=== PATIENT | female | born 1955 | race Caucasian/White ===

== ENCOUNTER 2016-08-23 10:46 | Observation (INO) | payer OTHER, MEDICARE ==
[2015-08-28 22:22] VITALS: BMI 41.1
[~2016-08-23 10:46] MED LIST: DEXAMETHASONE 4 MG/ML VIAL IV ONE; FENTANYL 250 MCG/5 ML VIAL IV ONE; GLYCOPYRROLATE 1 MG VIAL IM ONE; LIDOCAINE 100 MG PFS IV ONE; MIDAZOLAM 2 MG/2 ML VIAL IV ONE; NEOSTIGMINE 1 MG/1 ML (1:1000) INJ 10 ML MDV IM ONE; ONDANSETRON HCL 4 MG/2 ML VIAL IV ONE; PROPOFOL 200 MG/20 ML VIAL IV ONE; ROCURONIUM 50 MG/5 ML VIAL IV ONE; SUCCINYLCHOLINE 20 MG/1 ML INJ 10 ML MDV IV ONE
[2016-08-23] MEDS ORDERED: Albuterol/Ipratropium Neb 3 ML NEB NEB ONE (11:03)
[2016-08-23] MEDS ORDERED: CEFAZOLIN 1 GM VIAL ONE (11:04)
[2016-08-23 12:13] LABS: MPV 10.3 fL (7.4-10.4)
[2016-08-23 12:27] LABS: BLOOD UREA NITROGEN 16 MG/DL (7-17); CALCIUM 9.6 MG/DL (8.4-10.2); CALCULATED OSMOLALITY 278 MOs/Kg (270-290); CHLORIDE 107 mEq/L (98-107); GLUCOSE 102 MG/DL (70-99); SODIUM LEVEL 144 mEq/L (137-146); TOTAL PROTEIN 7.6 G/DL (6.3-8.2)
[2016-08-23] MEDS ORDERED: BUPIVACAINE 0.25%-EPINEPHRINE 1:200,000 30 ML ONE (14:01)
--- NOTE | 2016-08-23 14:06 | HIM.ANES ---
Anesthesia Evaluation & Plan Diagnoses: INCISIONAL HERNIA WITH OBSTRUCTION, WITHOUT GANGRENE (08/23/16) Consented Procedure: laparoscopiic ventral incisional hernia repair - Focused Review of Systems Cardiac History: Yes: Hx Hypertension, Hx Cardiac Disorders, Hx Abnormal Cholesterol/Hyperlipidemia HEENT: Yes: Hx Dysphagia, Hx Vision Problem (WEARS GLASSES), Other HEENT Problems No: Loose/Decaying Teeth Hx Other HEENT Surgery: T&A Respiratory: Yes: Hx Asthma, Hx Snoring, Hx Recent Cold/Flu (RECENT BRONCHITIS TAKING FLAGYL) Gastrointestinal: Yes: Hx Gastroesophageal Reflux Disease, Hx Gastrointestinal Disorders, Hx Diverticulitis, Hx Diverticulosis, Hx Colonoscopy, Hx Endoscopy Neurological/Musculoskeletal: Yes: Hx Migraine, Hx Back Pain, Hx Numbness, Tingling, Weakness in Arms & Legs, Hx Neurological Disorders No: HX Cerebrovascular Accident Other Neurological Problems: NEUROPATHY Psychological: Yes Hx Depression, Yes Hx Mental/Emotional Disorders Endocrine: Yes: Hx Obesity Blood/Autoimmune: Yes: Hx Anemia No: Hx AIDS, Hx Hepatitis (type) Smoking Status: Former smoker Surgical History: Yes: T&A, Cholecystectomy, Knee (RT TKA 08/2015 AND RT KNEE I& D 08/2015) Other Surgical History: T&A - Focused Physical Exam NPO since: 08/22/16 2300 Mallampati: Class II Thyromental Distance: Greater than 3 Neck: Full Range of Motion Dental: Normal - no significant findings Cardiovascular/Chest: Normal (RRR no mumurs or rubs.) Respiratory: Lungs clear. negative: Rhonchi, Wheezing Any problems with anesthesia, including nausea and vomiting?: Yes (N/V) Any relatives with a history of Malignant Hyperthermia?: No Does patient have a history of Malignant Hyperthermia?: No Beta Shanae given (if appropriate): Yes Does the patient have a history of Motion Sickness-: No Other: Problem List Problem Status Onset Status post total knee replacement using cement Acute Primary osteoarthritis of right knee Chronic CBC/BMP/Other 08/23/16 12:10 08/23/16 12:10 Allergies Allergy/AdvReac Type Severity Reaction Status Date / Time Sulfa (Sulfonamide Allergy Hives* Verified 08/23/16 11:15 Antibiotics) [Sulfa(Sulfonamide Antibiotics)] Home Medications Medication Instructions Recorded Last Taken Type Bisoprolol Fumarate/Hctz 1 each PO DAILY 12/14/12 08/23/16 07:30 History [Bisoprolol-Hctz Tablet (10mg/6.25mg)] Citalopram (anti-depressant) 20 mg PO DAILY 12/14/12 08/22/16 History [Celexa] Etodolac 400 mg PO TID 12/14/12 08/22/16 22:30 History Loratadine [Claritin] 10 mg PO DAILY 12/14/12 08/22/16 History Multivitamin [Multiple Vitamins] 1 each PO DAILY 12/14/12 08/22/16 History Omeprazole [Prilosec] 40 mg PO DAILY 12/14/12 08/23/16 07:30 History Pravastatin Sodium 40 mg PO DAILY 12/14/12 08/22/16 History Albuterol Sulfate [Ventolin Hfa] 1 - 2 puff INH Q4H PRN 08/08/15 08/22/15 History Gabapentin 600 mg PO TID 08/08/15 08/23/16 07:30 History Gemfibrozil [Lopid] 600 mg PO BID 08/08/15 08/22/16 22:30 History Ranitidine [Zantac] 150 mg PO HS 08/08/15 08/22/16 22:30 History Aspirin (OrangeEnteric Coated) 325 mg PO BIDWM #60 tablet 08/20/15 08/28/15 21: 00 Rx [Ecotrin] Cyclobenzaprine HCl [Flexeril] 10 mg PO Q8H PRN 08/29/15 08/22/16 22:30 History Albuterol Sulfate Nebs [Proventil, 3 ml INH Q4-6H PRN 08/20/16 Unknown History Ventolin] Metronidazole [Flagyl] 500 mg PO BID 08/20/16 08/18/16 History Hydrocodone 5 mg & APAP 325 mg 1 tab PO QID PRN 08/23/16 08/22/16 22:30 History [Lortab 5-325 Tab] Height and Weight Patient's height 5 ft 2 in Patient's weight 96.615 kg BMI 41.1 Vital Signs Temperature 98.3 F 08/23/16 11:08 Pulse Rate 99 08/23/16 11:08 Respiratory Rate 18 08/23/16 11:08 Blood Pressure 145/70 08/23/16 11:08 Pulse Oxygen Saturation 93 08/23/16 11:08 METS - Level of Activity: Climbing stairs(1 flight),walking level ground, running short distance - Anesthetic Plan Anesthesia Type: General ASA Class: 2 -: I have examined this patient and reviewed the medical record. The patient has been assessed prior to anesthesia. Risks and benefits of anesthesia and anesthetic technique options have been discussed and all questions answered. The patient accepts the risk and desires me to proceed with the planned anesthetic.
[2016-08-23] MEDS ORDERED: SCOPOLAMINE TRANSDERMAL PATCH TOP ONE ×2 (14:09)
[2016-08-23] MEDS ORDERED: ONDANSETRON HCL 4 MG/2 ML VIAL IV PRN ×2 (14:09→15:26)
[2016-08-23] MEDS ORDERED: LABETALOL 20 MG/4 ML SYRINGE IV PRN (14:09)
[2016-08-23] MEDS ORDERED: MEPERIDINE 25 MG/ML TUBEX IV PRN (14:09)
[2016-08-23] MEDS ORDERED: FENTANYL 100 MCG/2 ML VIAL IV PRN (14:09)
[2016-08-23] MEDS ORDERED: HYDROmorphone 1 MG INJECTION IV PRN ×3 (14:09→15:26)
[2016-08-23] MEDS ORDERED: ONDANSETRON HCL 4 MG ODT TAB PO PRN ×2 (14:09→15:26)
[2016-08-23] MEDS ORDERED: hydrALAZINE 20 MG/ML VIAL IV PRN (14:09)
[2016-08-23] MEDS ORDERED: DEXTROSE 25 GM/50 ML PFS IV PRN (15:26)
[2016-08-23] MEDS ORDERED: OXYCODONE HCL 5 MG TABLET PO PRN (15:26)
[2016-08-23] MEDS ORDERED: GLUCAGON 1 MG VIAL SQ PRN (15:26)
[2016-08-23] MEDS ORDERED: PROMETHAZINE 25 MG/ML VIAL IV PRN (15:26)
[2016-08-23] MEDS ORDERED: PROMETHAZINE 25 MG TAB PO PRN (15:26)
[2016-08-23] MEDS ORDERED: GLUCOSE (ORAL GEL) 15 GM TUBE PO PRN (15:26)
[2016-08-23] MEDS ORDERED: CYCLOBENZAPRINE 10 MG TAB PO PRN (15:29)
[2016-08-23] MEDS ORDERED: ALBUTEROL 0.083% 3 ML NEB NEB PRN ×2 (15:29→21:29)
--- NOTE | 2016-08-23 15:37 | HIMOPRPT ---
DATE OF PROCEDURE: 08/23/16 PREOPERATIVE DIAGNOSES: Symptomatic incarcerated ventral incisional hernia. POSTOPERATIVE DIAGNOSES: Same. PROCEDURES: Laparoscopic repair of incarcerated ventral incisional hernia. SURGEON: Jens Jonas MD ANESTHESIA: General. COMPLICATIONS: None. ESTIMATED BLOOD LOSS: Minimal. ANTIBIOTICS: Preoperative antibiotics given. INDICATIONS: The patient is a very pleasant female who had been found to have a symptomatic incarcerated ventral incisional hernia. I evaluated her and felt she would benefit from laparoscopic ventral incisional hernia repair. I explained the risks and benefits of this to her including the risk infection, bleeding and anesthesia as well as the unforeseen complications. She understood the risk of recurrence and mesh complications. She agreed was brought for the above-mentioned procedure. OPERATIVE NOTE: The patient was brought to the operating room and placed on the operating table in the supine position. After adequate amount of general anesthesia she was prepped and draped in sterile manner. When given the okay by anesthesia after appropriate time-out an Optiview trocars placed in the left upper quadrant without any difficulties. The abdomen was insufflated 15 mm mercury pressure with CO2 gas. Three other trocars were placed under direct vision usual manner without any problems. At that point we carefully reduced the omentum from the hernia sac. Hemostasis was assured. A 15 cm surgimesh prosthesis was then placed into the abdomen after affixing stay sutures in each quadrant. The stay sutures were brought out with a suture Passer. We had excellent overlap of over 5 cm circumferentially. We used a secure strap and circular Tacker to tack this into position. With the mesh in good position we place Seprafilm in the usual manner. Local anesthetic was applied. The trocars were removed after closing the 12 mm trocar site with a 1. Vicryl suture. All wounds were irrigated and the trocar sites were brought together with 4 0 Monocryl. Dermabond tissue adhesive was applied and allowed to dry. The patient was awoke and taken recover room in excellent condition with correct sponge counts needle counts.
[2016-08-23] MEDS ORDERED: FENTANYL 100 MCG/2 ML VIAL ONE (15:41)
[2016-08-23] MEDS: FENTANYL 100 MCG/2 ML VIAL IV PRN ×2 (15:45→16:00)
[2016-08-23] MEDS ORDERED: BUPIVACAINE LIPOSOME/PF 1.3% 20 ML VIAL INF ONE (16:00)
[2016-08-23] MEDS ORDERED: Acetaminophen, Intravenous 1,000 MG/100 ML IVBOT IV ONE (16:00)
--- NOTE | 2016-08-23 17:24 | SC.ANESPOS ---
Post-Anesthesia Note LOC: Fully Awake Post-Anesthesia Assessment: Awake, Returned to Baseline, Hemodynamically Stable , Pain Control Adequate Phase I & II Recovery Complete: Yes Apparent Anesthesia Complication: No : N PACU Discharge Time: 16:35 - Vital Signs Blood Pressure: 125/58 Pulse: 91 Resp Rate: 18 O2 Sat: 92 Temp: 98.4 F - Comments Anesthesia Discharge Time Report Time 16:35
[2016-08-23] MEDS: REGULAR INSULIN 100 UNITS/ML - 3 ML VIAL SQ SCH ×2 (18:06→21:16)
[2016-08-23] MEDS: SODIUM CHLORIDE 0.9% 3 ML FLUSH FLUSH SCH ×2 (18:06→18:07)
[2016-08-23] MEDS: Aspirin (Orange Enteric Coated) 325 mg tab PO SCH (18:27)
[2016-08-23] MEDS: OXYCODONE HCL 5 MG TABLET PO PRN ×2 (18:27→22:53)
[2016-08-23] MEDS: GEMFIBROZIL 600 MG TAB PO SCH (18:27)
[2016-08-23] MEDS: METRONIDAZOLE 500 MG TAB PO SCH (20:51)
[2016-08-23] MEDS: GABAPENTIN 300 MG CAP PO SCH (20:51)
[2016-08-23] MEDS ORDERED: RANITIDINE 150 MG TAB PO SCH (21:00)
[2016-08-23] MEDS: ETODOLAC 200 MG CAP PO SCH (21:14)
[2016-08-23] MEDS ORDERED: ALBUTEROL 6.7 GM MDI INH PRN (21:29)
[2016-08-23] MEDS ORDERED: ACETAMINOPHEN 650 MG SUPP PR PRN (22:00)
[2016-08-23] MEDS ORDERED: ACETAMINOPHEN 325 MG/TAB TABLET PO PRN (22:00)
[2016-08-23] MEDS ORDERED: Vaccine Screening Complete SCH (22:00)
--- NOTE | 2016-08-23 22:23 | HIMCONSMED ---
Consultation Date: 08/23/16 Requesting Physician: Jens Jonas Consulting Doctor: Gil Caputo Consult Reason: Medical Management This is a pleasant 60-year-old female with history of hypertension, borderline diabetes and asthma who was admitted to the [facility] after an elective ventral hernia repair by Dr. Jens Jonas. Hospitalist group was asked to consult for medical management. Currently, the patient is resting comfortably in her bed on the hospital castro. She complains of some slight abdominal pain, as well as some shortness of breath which is improving with supplemental oxygen and breathing treatments. She does admit to history of asthma. She denies any chest pain, nausea or vomiting. Pain is well controlled with current analgesia ordered by Dr. Jonas. Chief Complaint: Status post laparoscopic ventral hernia repair - Past Medical and Surgical History Cardiac History: Reports: Hypertension Respiratory History: Reports: Asthma GI/ History: Reports: Urinary Tract Infection, Kidney Stones, Diverticulosis Systemic History: Reports: Anemia. Denies: Cancer Musculoskeletal History: Reports: Arthritis (OSTEOARTHRITIS) Psychological History: Reports: Depression Neurological History: Denies: Cerebrovascular Accident Past Surgical History: Reports: Cholecystectomy, Hysterectomy, Tonsillectomy/ Adnoidectomy Allergies Sulfa (Sulfonamide Antibiotics) [Sulfa(Sulfonamide Antibiotics)] Allergy ( Verified 08/23/16 11:15) Hives* Home Medications Bisoprolol Fumarate/Hctz [Bisoprolol-Hctz Tablet (10mg/6.25mg)] 1 each PO DAILY 12/14/12 Citalopram (anti-depressant) [Celexa] 20 mg PO DAILY 12/14/12 Etodolac 400 mg PO TID 12/14/12 Loratadine [Claritin] 10 mg PO DAILY 12/14/12 Multivitamin [Multiple Vitamins] 1 each PO DAILY 12/14/12 Omeprazole [Prilosec] 40 mg PO DAILY 12/14/12 Pravastatin Sodium 40 mg PO DAILY 12/14/12 Albuterol Sulfate [Ventolin Hfa] 1 - 2 puff INH Q4H PRN 08/08/15 Gabapentin 600 mg PO TID 08/08/15 Gemfibrozil [Lopid] 600 mg PO BID 08/08/15 Ranitidine [Zantac] 150 mg PO HS 08/08/15 Aspirin (OrangeEnteric Coated) [Ecotrin] 325 mg PO BIDWM #60 tablet 08/20/15 Cyclobenzaprine HCl [Flexeril] 10 mg PO Q8H PRN 08/29/15 Albuterol Sulfate Nebs [Proventil, Ventolin] 3 ml INH Q4-6H PRN 08/20/16 Metronidazole [Flagyl] 500 mg PO BID 08/20/16 Hydrocodone 5 mg & APAP 325 mg [Lortab 5-325 Tab] 1 tab PO QID PRN 08/23/16 - Social History Travel Outside of [place] in the Last 3 Months?: No Smoking Status: Former smoker - Family History Reports: Hypertension (MOTHER), Diabetes (MOTHER, BROTHER), Cancer (FATHER, BROTHER), Cardiac Disorders (MOTHER). Denies: Stroke - Review of Systems Constitutional: No Symptoms Reported (No fever, chills, wt loss/gain, fatigue) Eyes: No Symptoms Reported (No blurry vision, visual changes) Respiratory: No Symptoms Reported (No cough,wheezing or shortness of breath) Cardiovascular: No Symptoms Reported (No Chest pain, palpitations) Gastrointestinal: No Symptoms Reported (No abdominal pain, nausea, vomiting, diarrhea or constipation) Genitourinary: No Symptoms Reported (No dysuria) Musculoskeletal:: No Symptoms Reported (No headache, dizzness, seizures or focal weakness) Integumentary: No Symptoms Reported (No rashes or lesions) Hematologic: No Symptoms Reported (No bleeding or easy bruising) Endocrine: No Symptoms Reported (No polyuria) - Physical Exam Vital Signs: Initial Vitals Temperature 98.3 F 08/23/16 11:08 Pulse Rate 99 08/23/16 11:08 Respiratory Rate 18 08/23/16 11:08 Blood Pressure 145/70 08/23/16 11:08 Pulse Oxygen Saturation 93 08/23/16 11:08 Constitutional: Alert (Awake, Fully oriented, well appearing. No apparent distress) Oriented to: Time, Person, Place - HEENT Head: Normal (normocephalic,atraumatic, trachea midline) Eye: Normal (EOMI, Sclera white) Oropharynx: Normal (moist) Nose: No Symptoms Reported (without discharge or bleeding) Respiratory: Normal - CTA (Clear to auscultation bilaterally, no wheezing,rales or rhonchi. No use of accessory muscles) Cardiovascular: Normal (RRR, no murmurs, rubs or gallops) - GI Palpation: Normal (soft, non distended and nontender) - Musculoskeletal Extremities: Normal (normal tone, no cyanosis or edema) - Integumentary Skin: Normal (no rashes or lesions) - Neurologic Cranial Nerve: Normal (CN II-XII intact) Mood Description: Normal (Fully oriented and appropiate affect) - Other Exam Other Exam Findings: Abdomen is softly distended, port incisions are clean dry and intact. There is some slow moving bowel sounds, abdomen is tender to palpation but soft. - Lab Results Laboratory Tests 08/23/16 08/23/16 12:10 12:10 WBC 6.7 Hgb 11.7 L Hct 35.4 L Potassium 4.6 BUN 16 Creatinine 0.60 - Assessment (1) Ventral hernia K43.9 - VENTRAL HERNIA WITHOUT OBSTRUCTION OR GANGRENE Acute Qualifiers: Obstruction and gangrene presence: O Status post ventral hernia laparoscopic repair by Dr. Jonas earlier today. Further management by General surgery Service. (2) Asthma J45.909 - UNSPECIFIED ASTHMA, UNCOMPLICATED Acute Qualifiers: Asthma severity: A Asthma complication type: A Albuterol p.r.n.. (3) Hypertension I10 - ESSENTIAL (PRIMARY) HYPERTENSION Acute Qualifiers: Hypertension type: H Continue home medications, blood pressure is under control. (4) Chronic pain G89.29 - OTHER CHRONIC PAIN Acute Qualifiers: Chronic pain type: C Continue home gabapentin and Flexeril. (5) Elevated blood sugar R73.9 - HYPERGLYCEMIA, UNSPECIFIED Acute Patient says her last hemoglobin A1c was 5.9. Will recheck this, as this was about 3 months ago. She is on sliding scale insulin. Case Care Discussed with: Patient, Consultants, Nursing Staff Total Time: 40
[2016-08-24] MEDS ORDERED: ENOXAPARIN 40 MG/0.4 ML PFS SQ SCH (04:00)
[2016-08-24] MEDS: ETODOLAC 200 MG CAP PO SCH (05:27)
[2016-08-24] MEDS: GABAPENTIN 300 MG CAP PO SCH (05:27)
[2016-08-24 05:46] VITALS: BP 126/60; PULSE 90; TEMP 98.7
[2016-08-24] MEDS ORDERED: PANTOPRAZOLE 40 MG TAB PO SCH (06:00)
[2016-08-24] MEDS: SODIUM CHLORIDE 0.9% 3 ML FLUSH FLUSH SCH (07:04)
[2016-08-24] MEDS: REGULAR INSULIN 100 UNITS/ML - 3 ML VIAL SQ SCH (08:05)
[2016-08-24] MEDS: GEMFIBROZIL 600 MG TAB PO SCH (08:09)
[2016-08-24] MEDS: Aspirin (Orange Enteric Coated) 325 mg tab PO SCH (08:09)
[2016-08-24] MEDS: OXYCODONE HCL 5 MG TABLET PO PRN (08:10)
--- NOTE | 2016-08-24 08:26 | PCM.DCS92 ---
- Final/Secondary Discharge Diagnosis (1) Ventral hernia Acute K43.9 - VENTRAL HERNIA WITHOUT OBSTRUCTION OR GANGRENE O Discharge Disposition: Home Discharge Condition: Improved Physician Follow up/Referrals: Jens Jonas MD [Staff Physician] - Call for Appointment (Patient to call for appointment in approximately 1 week.) Home Medications/ New Prescriptions: No Action Loratadine [Claritin] 10 mg PO DAILY Bisoprolol Fumarate/Hctz [Bisoprolol-Hctz Tablet (10mg/6.25mg)] 1 each PO DAILY Pravastatin Sodium 40 mg PO DAILY Multivitamin [Multiple Vitamins] 1 each PO DAILY Citalopram (anti-depressant) [Celexa] 20 mg PO DAILY Omeprazole [Prilosec] 40 mg PO DAILY Etodolac 400 mg PO TID Albuterol Sulfate [Ventolin Hfa] 1 - 2 puff INH Q4H PRN PRN Reason: SHORTNESS OF BREATH Ranitidine [Zantac] 150 mg PO HS Gemfibrozil [Lopid] 600 mg PO BID Gabapentin 600 mg PO TID Aspirin (OrangeEnteric Coated) [Ecotrin] 325 mg PO BIDWM #60 tablet Cyclobenzaprine HCl [Flexeril] 10 mg PO Q8H PRN PRN Reason: Pain Albuterol Sulfate Nebs [Proventil, Ventolin] 3 ml INH Q4-6H PRN PRN Reason: Shortness Of Breath Metronidazole [Flagyl] 500 mg PO BID Hydrocodone 5 mg & APAP 325 mg [Lortab 5-325 Tab] 1 tab PO QID PRN PRN Reason: Pain Diet at Discharge: As Tolerated Activity: As Tolerated, No Heavy Lifting Call Office For: Worsening Symptoms Discontinue use of:: Alcohol, All Illegal Substances, All Types of Tobacco - DC Summary Notes Hospital Course Note:: Discharge summary on patient named JAMES QUILES admitted to [facility] on 08/23/16 by Jens Jonas MD. Date of discharge is []. The patient is a very pleasant 60-year-old female who had an incarcerated ventral incisional hernia. She underwent laparoscopic ventral incisional hernia repair and did extremely well. Postoperatively the patient was tolerating her diet, ambulating, voiding and had her pain under control as well as being afebrile. I felt she was ready for discharge to home. I went over the instructions in detail with her and she understood and agreed. - Physical Exam Vital Signs: Initial Vitals Temperature 98.3 F 08/23/16 11:08 Pulse Rate 99 08/23/16 11:08 Respiratory Rate 18 08/23/16 11:08 Blood Pressure 145/70 08/23/16 11:08 Pulse Oxygen Saturation 93 08/23/16 11:08 Constitutional: No apparent distress, Alert Respiratory: Normal - CTA Cardiovascular: Normal - GI Auscultation: Normal Palpation: Normal Tenderness: Mild (As expected after surgery.) - Musculoskeletal Extremities: Normal. negative: Calf Tenderness, Clubbing, Cyanosis, Edema - Integumentary Skin: Other (Wounds clean with no erythema.)
[2016-08-24] MEDS ORDERED: PRAVASTATIN 40 MG TABLET PO SCH (09:00)
[2016-08-24] MEDS ORDERED: HCTZ 6.25 MG PO SCH (09:00)
[2016-08-24] MEDS ORDERED: Loratadine 10 MG TAB PO SCH (09:00)
[2016-08-24] MEDS ORDERED: BISOPROLOL 10 MG PO SCH (09:00)
[2016-08-24] MEDS: METRONIDAZOLE 500 MG TAB PO SCH (09:14)
[2016-08-24] MEDS ORDERED: VITAMINS, MULTIPLE CAP PO SCH (12:00)
--- NOTE | 2016-08-24 15:52 | CAPUEKG ---
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
== END 2016-08-24 10:34 | disposition home or self-care (01) ==
LOC: SDC 10:46 → MASU 16:53
PROVIDERS: ADMIT Surgery; ATTEND Surgery
PROC: 0WUF4JZ Supplement Abdominal Wall with Synthetic Substitute, Percutaneous Endoscopic Approach (ICD-10-PCS; principal; 2016-08-23 12:25)
DX: K43.0 Incisional hernia with obstruction, without gangrene (principal); R73.03 Prediabetes; I10 Essential (primary) hypertension; J45.909 Unspecified asthma, uncomplicated; Z79.82 Long term (current) use of aspirin; Z87.891 Personal history of nicotine dependence; Z79.899 Other long term (current) drug therapy
CPT/HCPCS: 49653; 80053; 82962; 83036; 85027; 93005; 96372; C1781; C9290; G0237; G0378; J0131; J0330; J0690; J1100; J1650; J2001; J2250; J2405; J2710; J3010; J3490; J7620